=== PATIENT | female | born 1935 | race Caucasian/White ===

== ENCOUNTER → 2016-09-19 | Outpatient (CLI) | payer MEDICARE, OTHER ==
[~2016-09-19] MED LIST: ACET-66 PO; ASPI81TA2 PO; CARV25 PO; CLOP75 PO; CLOP75TA32 PO; DICL2100G TP; LOPE2 PO; LOSA50TA37 PO; MECL-111 PO; METHI5 PO; NITR0.4T SL; RABE20TA60 PO
== END | disposition home or self-care (01) ==
LOC: RADPV 13:29
PROVIDERS: ATTEND Internal Medicine Cardiovascular Disease
DX: I70.203 Unspecified atherosclerosis of native arteries of extremities, bilateral legs (principal)
CPT/HCPCS: 93925

== ENCOUNTER 2016-10-09 10:23 | Inpatient (IN) | payer MEDICARE, OTHER ==
[~2016-10-09] VITALS: Ht 160 cm; Wt 69.5 kg
[~2016-10-09 10:23] MED LIST changes: -CLOP75 PO; -DICL2100G TP
[2016-10-09] MEDS ORDERED: ASPIRIN 81 MG CHEWABLE TABLET PO ONE (10:30)
[2016-10-09] MEDS ORDERED: CLOP75 PO (10:38)
[2016-10-09] MEDS ORDERED: DICL2100G TP (10:38)
[2016-10-09 11:02] LABS: BASOPHILS % (AUTO) 0.2 % (0.0-2.0); EOSINOPHILS % (AUTO) 0.2 % (1.0-6.0); HEMATOCRIT 36.3 % (36-46); HEMOGLOBIN 11.8 g/dL (12.0-16.0); LYMPHOCYTES # (AUTO) 2.2 K/uL (1.0-4.8); LYMPHOCYTES % (AUTO) 25.5 % (22.0-44.0); MEAN CORPUSCULAR HGB CONC 32.7 G/dL (31.0-37.0); MEAN CORPUSCULAR VOLUME 95 fL (80-100); MONOCYTES # (AUTO) 0.5 K/uL (0.1-1.0); MONOCYTES % (AUTO) 5.8 % (2.0-9.0); NEUTROPHILS % (AUTO) 68.3 % (40.0-70.0); PLATELET COUNT (AUTO) 253 K/uL (150-450); RED BLOOD CELL COUNT(AUTO) 3.82 MIL/uL (4.00-5.20); RED CELL DISTRIBUTION WIDTH 13.9 % (11.5-14.5); WHITE BLOOD COUNT (AUTO) 8.8 K/uL (4.5-11.0)
[2016-10-09 11:12] LABS: ANION GAP 10 mmol/L (8-16); CARBON DIOXIDE 23 mmol/L (22-29); CHLORIDE 102 mmol/L (98-107); CREATININE 1.01 mg/dL (0.60-1.30); GLOMERULAR FILTR. RATE CALC 52 mL/min (>60); POTASSIUM 4.5 mmol/L (3.5-5.1); PROTHROMBIN TIME 10.3 SEC (9.4-11.6); SODIUM SERUM 135 mmol/L (136-145); UREA NITROGEN, BLOOD 22 mg/dL (7-18)
[2016-10-09 11:20] LABS: ALANINE AMINOTRANSFERASE 18 U/L (12-78); ASPARTATE AMINOTRANSFERASE 19 U/L (15-37); BILIRUBIN,TOTAL 0.3 mg/dL (0.1-1.0); CREATINE KINASE, TOTAL 70 U/L (26-192); TOTAL PROTEIN, SERUM 7.5 g/dL (6.4-8.2)
[2016-10-09 11:22] LABS: APPEARANCE,URINE CLEAR (CLEAR); GLUCOSE, URINE (UA) NEGATIVE (NEGATIVE); KETONES,URINE NEGATIVE (NEGATIVE); LEUKOCYTE ESTERASE ,URINE SMALL (NEGATIVE); OCCULT BLOOD,URINE NEGATIVE (NEGATIVE); PH,URINE 5.5 (5.0-8.0); PROTEIN,URINE NEGATIVE (NEGATIVE)
[2016-10-09 11:25] LABS: B-TYPE NATRIURETIC PEPTIDE 113 pg/mL (0-100)
[2016-10-09 11:26] LABS: ADD UA MICROSCOPIC YES
[2016-10-09] MEDS ORDERED: NITROGLYCERIN 2% (1 GM=INCH) PACKET TP ONE (11:30)
[2016-10-09 11:33] LABS: RBC,URINE 0-2 /HPF (0-2); SQUAMOUS EPITHELIAL CELL,UR Few /LPF (None Seen)
[2016-10-09] MEDS ORDERED: ONDANSETRON HCL 4 MG/2 ML VIAL IVP PRN ×2 (13:45→22:45)
[2016-10-09] MEDS ORDERED: MORPHINE SULFATE 2 MG/ML SYRINGE IVP PRN (13:45)
[2016-10-09] MEDS ORDERED: ACETAMINOPHEN 325 MG TABLET PO PRN ×2 (13:45→22:45)
[2016-10-09 17:33] VITALS: BP 181/80
[2016-10-09] MEDS ORDERED: CARVEDILOL 25 MG TABLET PO ONE (17:45)
[2016-10-09 19:37] VITALS: BP 139/67
[2016-10-09] MEDS ORDERED: IPRATROPIUM BROMIDE 0.5 MG/2.5 ML NEB SOLUTION NEB PRN (22:45)
[2016-10-09] MEDS ORDERED: MAGNESIUM HYDROXIDE SUSPENSION 30 ML UDCUP PO PRN (22:45)
[2016-10-09] MEDS ORDERED: NITROGLYCERIN 0.4 MG SUBLINGUAL TABLET #25 SL PRN (22:45)
[2016-10-09] MEDS ORDERED: ZOLPIDEM TARTRATE 10 MG TABLET PO PRN (22:45)
[2016-10-09] MEDS ORDERED: LOPERAMIDE HCL 2 MG CAPSULE PO PRN (22:45)
[2016-10-09 23:46] VITALS: BP 118/52
[2016-10-09] MEDS: NITROGLYCERIN 2% (1 GM=INCH) PACKET TP SCH (23:49)
[2016-10-10 04:10] VITALS: BP 133/55
[2016-10-10] MEDS: NITROGLYCERIN 2% (1 GM=INCH) PACKET TP SCH ×2 (05:46→12:00)
[2016-10-10 05:57] LABS: BASOPHILS % (AUTO) 0.2 % (0.0-2.0); EOSINOPHILS % (AUTO) 0.1 % (1.0-6.0); HEMATOCRIT 35.3 % (36-46); HEMOGLOBIN 11.6 g/dL (12.0-16.0); LYMPHOCYTES # (AUTO) 2.6 K/uL (1.0-4.8); MEAN CORPUSCULAR HEMOGLOBIN 31.2 pg (26.0-34.0); MEAN CORPUSCULAR HGB CONC 32.7 G/dL (31.0-37.0); MEAN CORPUSCULAR VOLUME 95 fL (80-100); MONOCYTES # (AUTO) 0.5 K/uL (0.1-1.0); MONOCYTES % (AUTO) 5.8 % (2.0-9.0); NEUTROPHILS # (AUTO) 5.2 K/uL (1.8-7.7); NEUTROPHILS % (AUTO) 62.9 % (40.0-70.0); PLATELET COUNT (AUTO) 234 K/uL (150-450); RED BLOOD CELL COUNT(AUTO) 3.71 MIL/uL (4.00-5.20); RED CELL DISTRIBUTION WIDTH 13.9 % (11.5-14.5); WHITE BLOOD COUNT (AUTO) 8.3 K/uL (4.5-11.0)
[2016-10-10 06:23] LABS: ALBUMIN 3.5 g/dL (3.4-5.0); BILIRUBIN,TOTAL 0.4 mg/dL (0.1-1.0); CALCIUM, TOTAL 8.7 mg/dL (8.8-10.5); CHOL/HDL RATIO 4.3 (3.9-5.7); CREATININE 1.04 mg/dL (0.60-1.30); THYROID STIMULATING HORMONE 6.77 uIU/mL (0.36-3.74); TOTAL PROTEIN, SERUM 6.8 g/dL (6.4-8.2)
[2016-10-10 07:10] VITALS: BP 143/69
[2016-10-10] MEDS: DICLOFENAC SODIUM 1% 100 GM GEL [2GM] TP SCH ×3 (08:05→16:25)
[2016-10-10] MEDS ORDERED: CARVEDILOL 25 MG TABLET PO SCH (09:00)
[2016-10-10] MEDS ORDERED: LOSARTAN POTASSIUM 50 MG TABLET PO SCH (09:00)
[2016-10-10] MEDS ORDERED: CLOPIDOGREL BISULFATE 75 MG TABLET PO SCH (09:00)
[2016-10-10] MEDS ORDERED: DOCUSATE SODIUM 100 MG CAPSULE PO SCH (09:00)
[2016-10-10] MEDS ORDERED: PANTOPRAZOLE SODIUM 40 MG/VIAL IVP SCH (09:00)
[2016-10-10] MEDS ORDERED: ASPIRIN 81 MG CHEWABLE TABLET PO SCH (09:00)
[2016-10-10 11:09] VITALS: BP 106/66
[2016-10-10 15:16] VITALS: BP 144/59
== END 2016-10-10 16:30 | disposition home or self-care (01) | DRG 303 ==
LOC: EMS 10:29 → 5S 13:26
PROVIDERS: ADMIT Hospitalist; ATTEND Hospitalist
DX: I25.110 Atherosclerotic heart disease of native coronary artery with unstable angina pectoris (principal); I44.7 Left bundle-branch block, unspecified; I73.9 Peripheral vascular disease, unspecified; I10 Essential (primary) hypertension; K21.9 Gastro-esophageal reflux disease without esophagitis; M81.0 Age-related osteoporosis without current pathological fracture; E03.9 Hypothyroidism, unspecified; E78.5 Hyperlipidemia, unspecified; Z88.0 Allergy status to penicillin; Z88.8 Allergy status to other drugs, medicaments and biological substances; Z88.6 Allergy status to analgesic agent; Z88.4 Allergy status to anesthetic agent; Z91.041 Radiographic dye allergy status; Z90.710 Acquired absence of both cervix and uterus; Z90.721 Acquired absence of ovaries, unilateral; Z82.49 Family history of ischemic heart disease and other diseases of the circulatory system; Z95.818 Presence of other cardiac implants and grafts; Z79.82 Long term (current) use of aspirin; Z88.7 Allergy status to serum and vaccine
CPT/HCPCS: 84439; 84443; 93005; 93306; 99285; C9113

== ENCOUNTER → 2016-10-15 | Outpatient (CLI) | payer MEDICARE, OTHER ==
[~2016-10-15] MED LIST changes: +CLOP75 PO; -CLOP75TA32 PO; +DICL2100G TP; -MECL-111 PO; -METHI5 PO
== END | disposition home or self-care (01) ==
LOC: RADPV 14:57
PROVIDERS: ATTEND Family Medicine
DX: M53.3 Sacrococcygeal disorders, not elsewhere classified (principal); M81.0 Age-related osteoporosis without current pathological fracture; M47.896 Other spondylosis, lumbar region; M41.86 Other forms of scoliosis, lumbar region; I70.0 Atherosclerosis of aorta; I70.8 Atherosclerosis of other arteries; Z91.81 History of falling
CPT/HCPCS: 72220

== ENCOUNTER 2017-11-15 11:58 | Emergency (ER) | payer MEDICARE, OTHER ==
[~2017-11-15] VITALS: Ht 157.5 cm; Wt 59.1 kg
[~2017-11-15 11:58] MED LIST changes: -ASPI81TA2 PO; +ASPI81TA39 PO
[2017-11-15] MEDS ORDERED: MECLIZINE HCL 25 MG TABLET PO ONE (12:30)
[2017-11-15] MEDS ORDERED: SODIUM CHLORIDE 0.9% 1,000 ML IV ONE (12:30)
[2017-11-15 12:43] LABS: BASOPHILS % (AUTO) 0.2 % (0.0-2.0); EOSINOPHILS % (AUTO) 0 % (1.0-6.0); HEMOGLOBIN 13.4 g/dL (12.0-16.0); LYMPHOCYTES # (AUTO) 1.8 K/uL (1.0-4.8); LYMPHOCYTES % (AUTO) 21.8 % (22.0-44.0); MEAN CORPUSCULAR HEMOGLOBIN 29.6 pg (26.0-34.0); MEAN CORPUSCULAR HGB CONC 33.4 G/dL (31.0-37.0); MEAN CORPUSCULAR VOLUME 89 fL (80-100); MONOCYTES # (AUTO) 0.4 K/uL (0.1-1.0); MONOCYTES % (AUTO) 5.3 % (2.0-9.0); NEUTROPHILS # (AUTO) 6.1 K/uL (1.8-7.7); NEUTROPHILS % (AUTO) 72.7 % (40.0-70.0); PLATELET COUNT (AUTO) 217 K/uL (150-450); RED BLOOD CELL COUNT(AUTO) 4.51 MIL/uL (4.00-5.20); RED CELL DISTRIBUTION WIDTH 17.1 % (11.5-14.5)
[2017-11-15 12:46] LABS: ANION GAP 9 mmol/L (8-16); CARBON DIOXIDE 25 mmol/L (22-29); CHLORIDE 104 mmol/L (98-107); CREATININE 1.04 mg/dL (0.60-1.30); GLOMERULAR FILTR. RATE CALC 50 mL/min (>60); GLUCOSE,RANDOM 111 mg/dL (70-110); POTASSIUM 4.4 mmol/L (3.5-5.1); SODIUM SERUM 138 mmol/L (136-145); UREA NITROGEN, BLOOD 23 mg/dL (7-18)
[2017-11-15 12:51] LABS: INR 1.1 (0.9-1.1); PROTHROMBIN TIME 11.3 SEC (9.4-11.6)
[2017-11-15 12:53] LABS: ALANINE AMINOTRANSFERASE 30 U/L (12-78); ALBUMIN 3.6 g/dL (3.4-5.0); ALKALINE PHOSPHATASE 90 U/L (46-116); ASPARTATE AMINOTRANSFERASE 23 U/L (15-37); BILIRUBIN,TOTAL 0.8 mg/dL (0.1-1.0); CREATINE KINASE, TOTAL 33 U/L (26-192)
[2017-11-15 13:01] LABS: B-TYPE NATRIURETIC PEPTIDE 719 pg/mL (0-100)
[2017-11-15] MEDS ORDERED: LISI-660 PO (13:16)
[2017-11-15] MEDS ORDERED: METO-558 PO (13:16)
[2017-11-15] MEDS ORDERED: ATOR40TA28 PO (13:16)
[2017-11-15] MEDS ORDERED: FAMO20 PO (13:16)
[2017-11-15] MEDS ORDERED: METHI5 PO (13:16)
[2017-11-15] MEDS ORDERED: LEVE500T53 PO (13:16)
[2017-11-15] MEDS ORDERED: APIX5TAB PO (13:16)
[2017-11-15 14:24] VITALS: BP 129/59
== END 2017-11-15 14:31 | disposition home or self-care (01) ==
LOC: EMS 11:59
DX: R42 Dizziness and giddiness (principal); I25.10 Atherosclerotic heart disease of native coronary artery without angina pectoris; I10 Essential (primary) hypertension; Z86.73 Personal history of transient ischemic attack (TIA), and cerebral infarction without residual deficits; Z90.721 Acquired absence of ovaries, unilateral; Z88.5 Allergy status to narcotic agent; Z88.0 Allergy status to penicillin; Z88.8 Allergy status to other drugs, medicaments and biological substances; Z91.041 Radiographic dye allergy status
CPT/HCPCS: 36415; 70450; 71045; 80053; 82550; 83880; 84484; 85025; 85610; 85730; 93005; 96360; 99285; J7030

== ENCOUNTER 2017-12-16 13:14 | Inpatient (IN) | payer MEDICARE, OTHER ==
[~2017-12-16] VITALS: Ht 154.9 cm; Wt 63.1 kg
[~2017-12-16 13:14] MED LIST changes: -ACET-66 PO; +APIX5TAB PO; -ASPI81TA39 PO; +ATOR40TA28 PO; -CARV25 PO; -CLOP75 PO; -DICL2100G TP; +FAMO20 PO; +LEVE500T53 PO; +LISI-660 PO; -LOPE2 PO; -LOSA50TA37 PO; +METHI5 PO; +METO-558 PO; -NITR0.4T SL; -RABE20TA60 PO
[2017-12-16] MEDS ORDERED: NITROGLYCERIN 2% (1 GM=INCH) PACKET TP ONE (13:45)
[2017-12-16] MEDS ORDERED: ASPIRIN 81 MG CHEWABLE TABLET PO ONE (13:45)
[2017-12-16 13:59] LABS: BASOPHILS % (AUTO) 0.3 % (0.0-2.0); EOSINOPHILS % (AUTO) 0 % (1.0-6.0); HEMATOCRIT 38.7 % (36-46); HEMOGLOBIN 12.9 g/dL (12.0-16.0); LYMPHOCYTES # (AUTO) 2.3 K/uL (1.0-4.8); LYMPHOCYTES % (AUTO) 24.4 % (22.0-44.0); MEAN CORPUSCULAR HEMOGLOBIN 30.4 pg (26.0-34.0); MEAN CORPUSCULAR HGB CONC 33.5 G/dL (31.0-37.0); MEAN CORPUSCULAR VOLUME 91 fL (80-100); MONOCYTES # (AUTO) 0.5 K/uL (0.1-1.0); MONOCYTES % (AUTO) 5.6 % (2.0-9.0); NEUTROPHILS # (AUTO) 6.6 K/uL (1.8-7.7); NEUTROPHILS % (AUTO) 69.7 % (40.0-70.0); PLATELET COUNT (AUTO) 207 K/uL (150-450); RED BLOOD CELL COUNT(AUTO) 4.26 MIL/uL (4.00-5.20); RED CELL DISTRIBUTION WIDTH 18.5 % (11.5-14.5)
[2017-12-16 14:12] LABS: CALCIUM, TOTAL 8.9 mg/dL (8.8-10.5); CREATININE 1.09 mg/dL (0.60-1.30); POTASSIUM 4.1 mmol/L (3.5-5.1)
[2017-12-16 14:17] LABS: ALBUMIN 3.5 g/dL (3.4-5.0); BILIRUBIN,TOTAL 1.1 mg/dL (0.1-1.0); TOTAL PROTEIN, SERUM 7.1 g/dL (6.4-8.2)
[2017-12-16] MEDS ORDERED: FUROSEMIDE 40 MG/4 ML VIAL IVP ONE (14:30)
[2017-12-16] MEDS ORDERED: ALBUTEROL SULFATE 2.5 MG/0.5 ML NEB SOLUTION NEB PRN (14:45)
[2017-12-16] MEDS ORDERED: ACETAMINOPHEN 325 MG TABLET PO PRN (14:45)
[2017-12-16] MEDS ORDERED: MAGNESIUM HYDROXIDE SUSPENSION 30 ML UDCUP PO PRN (14:45)
[2017-12-16 16:41] LABS: THYROID STIMULATING HORMONE 31.71 uIU/mL (0.36-3.74)
[2017-12-16 17:01] VITALS: BP 144/82
[2017-12-16 19:49] VITALS: BP 130/79
[2017-12-16] MEDS: APIXABAN 5 MG TABLET PO SCH ×2 (21:00→21:48)
[2017-12-16] MEDS: ATORVASTATIN CALCIUM 40 MG TABLET PO SCH (21:48)
[2017-12-16] MEDS: DOCUSATE SODIUM 100 MG CAPSULE PO SCH (21:48)
[2017-12-16] MEDS: LevETIRAcetam 500 MG TABLET PO SCH (21:48)
[2017-12-17 00:07] VITALS: BP 110/59
[2017-12-17 04:47] VITALS: BP 111/73
[2017-12-17 06:30] LABS: BASOPHILS % (AUTO) 0.2 % (0.0-2.0); EOSINOPHILS % (AUTO) 0 % (1.0-6.0); HEMATOCRIT 35.5 % (36-46); HEMOGLOBIN 12.2 g/dL (12.0-16.0); LYMPHOCYTES # (AUTO) 2.2 K/uL (1.0-4.8); LYMPHOCYTES % (AUTO) 21.9 % (22.0-44.0); MEAN CORPUSCULAR HGB CONC 34.4 G/dL (31.0-37.0); MEAN CORPUSCULAR VOLUME 90 fL (80-100); MONOCYTES # (AUTO) 0.5 K/uL (0.1-1.0); MONOCYTES % (AUTO) 5.5 % (2.0-9.0); NEUTROPHILS # (AUTO) 7.2 K/uL (1.8-7.7); NEUTROPHILS % (AUTO) 72.4 % (40.0-70.0); PLATELET COUNT (AUTO) 195 K/uL (150-450); RED BLOOD CELL COUNT(AUTO) 3.95 MIL/uL (4.00-5.20); RED CELL DISTRIBUTION WIDTH 18.4 % (11.5-14.5)
[2017-12-17 06:39] LABS: CALCIUM, TOTAL 8.9 mg/dL (8.8-10.5); CREATININE 1.22 mg/dL (0.60-1.30); POTASSIUM 3.8 mmol/L (3.5-5.1)
[2017-12-17 07:08] VITALS: BP 139/80
[2017-12-17] MEDS: APIXABAN 5 MG TABLET PO SCH ×2 (08:12→21:00)
[2017-12-17] MEDS: DOCUSATE SODIUM 100 MG CAPSULE PO SCH ×2 (08:12→21:00)
[2017-12-17] MEDS: FUROSEMIDE 20 MG/2 ML VIAL IVP SCH (08:13)
[2017-12-17] MEDS: METOPROLOL SUCCINATE 50 MG ER TABLET PO SCH (08:13)
[2017-12-17] MEDS: PANTOPRAZOLE SODIUM 40 MG DR TABLET PO SCH (08:13)
[2017-12-17] MEDS: LevETIRAcetam 500 MG TABLET PO SCH ×2 (08:14→21:55)
[2017-12-17] MEDS ORDERED: METHIMAZOLE 5 MG TABLET PO SCH (09:00)
[2017-12-17 11:35] VITALS: BP 109/62
[2017-12-17 15:24] VITALS: BP 113/73
[2017-12-17 16:53] LABS: FREE T4 (FREE THYROXINE) 0.38 ng/dL (0.76-1.46)
[2017-12-17 20:02] VITALS: BP 117/60
[2017-12-17] MEDS: ATORVASTATIN CALCIUM 40 MG TABLET PO SCH (21:55)
[2017-12-18 00:05] VITALS: BP 107/60
[2017-12-18 05:31] VITALS: BP 112/58
[2017-12-18] MEDS ORDERED: LEVOTHYROXINE SODIUM 50 MCG TABLET PO SCH (06:30)
[2017-12-18 07:22] VITALS: BP 121/68
[2017-12-18] MEDS: DOCUSATE SODIUM 100 MG CAPSULE PO SCH (09:00)
[2017-12-18] MEDS: APIXABAN 5 MG TABLET PO SCH (09:00)
[2017-12-18] MEDS: FUROSEMIDE 20 MG/2 ML VIAL IVP SCH (09:21)
[2017-12-18] MEDS: PANTOPRAZOLE SODIUM 40 MG DR TABLET PO SCH (09:21)
[2017-12-18] MEDS: LevETIRAcetam 500 MG TABLET PO SCH (09:25)
[2017-12-18] MEDS: METOPROLOL SUCCINATE 50 MG ER TABLET PO SCH (09:25)
[2017-12-18 11:34] VITALS: BP 135/70
[2017-12-18] MEDS ORDERED: FURO20 PO (11:37)
[2017-12-18] MEDS ORDERED: LEVO50 PO (11:38)
[2017-12-18 15:57] VITALS: BP 115/67
== END 2017-12-18 18:25 | disposition home or self-care (01) | DRG 292 ==
LOC: EMS 13:15 → 5S 15:31
PROVIDERS: ADMIT Internal Medicine; ATTEND Internal Medicine
DX: I11.0 Hypertensive heart disease with heart failure (principal); I48.92 Unspecified atrial flutter; I50.21 Acute systolic (congestive) heart failure; I48.2 Chronic atrial fibrillation; E78.5 Hyperlipidemia, unspecified; E03.9 Hypothyroidism, unspecified; I44.7 Left bundle-branch block, unspecified; E05.90 Thyrotoxicosis, unspecified without thyrotoxic crisis or storm; I25.10 Atherosclerotic heart disease of native coronary artery without angina pectoris; Z88.5 Allergy status to narcotic agent; Z88.0 Allergy status to penicillin; Z88.7 Allergy status to serum and vaccine; Z88.8 Allergy status to other drugs, medicaments and biological substances; Z88.1 Allergy status to other antibiotic agents; Z91.041 Radiographic dye allergy status; Z90.5 Acquired absence of kidney; Z90.710 Acquired absence of both cervix and uterus; Z86.73 Personal history of transient ischemic attack (TIA), and cerebral infarction without residual deficits; Z82.49 Family history of ischemic heart disease and other diseases of the circulatory system
CPT/HCPCS: 84439; 84443; 93005; 93306; 96374; 99285; J1940

== ENCOUNTER → 2018-12-23 | Outpatient (CLI) | payer MEDICARE, OTHER ==
[~2018-12-23] MED LIST changes: -LEVE500T53 PO; -LISI-660 PO; +MECL12.585 PO
== END | disposition home or self-care (01) ==
LOC: RADPV 08:54
PROVIDERS: ATTEND Internal Medicine Cardiovascular Disease
DX: I37.1 Nonrheumatic pulmonary valve insufficiency (principal); I31.3 Pericardial effusion (noninflammatory); R06.89 Other abnormalities of breathing
CPT/HCPCS: 93306; 93880

== ENCOUNTER → 2020-02-25 | Outpatient (CLI) | payer MEDICARE, OTHER ==
[~2020-02-25] MED LIST changes: +MECL-183 PO; -MECL12.585 PO; +METH-386 PO; -METHI5 PO
== END | disposition home or self-care (01) ==
LOC: RADPV 09:32
PROVIDERS: ATTEND Nurse Practitioner
DX: K80.20 Calculus of gallbladder without cholecystitis without obstruction (principal); K42.9 Umbilical hernia without obstruction or gangrene
CPT/HCPCS: 76700

== ENCOUNTER → 2020-03-08 | Outpatient (CLI) | payer MEDICARE, OTHER ==
[~2020-03-08] MED LIST changes: +IOVERSOL 350 MG/ML 100 ML VIAL ONE; +SODIUM CHLORIDE 0.9% 100 ML ONE
== END | disposition home or self-care (01) ==
LOC: RADMN 09:38
PROVIDERS: ATTEND Nurse Practitioner
DX: K43.6 Other and unspecified ventral hernia with obstruction, without gangrene (principal); N28.89 Other specified disorders of kidney and ureter; K57.30 Diverticulosis of large intestine without perforation or abscess without bleeding; I51.7 Cardiomegaly; I70.8 Atherosclerosis of other arteries
CPT/HCPCS: 74178; J7050; Q9967

== ENCOUNTER 2021-09-25 17:43 | Emergency (ER) | payer MEDICARE, OTHER ==
[~2021-09-25] VITALS: Ht 162.6 cm; Wt 70.5 kg
[~2021-09-25 17:43] MED LIST changes: -IOVERSOL 350 MG/ML 100 ML VIAL ONE; -MECL-183 PO; +MECL-226 PO; -SODIUM CHLORIDE 0.9% 100 ML ONE
[2021-09-25] MEDS ORDERED: TEMA7.5C17 PO (18:55)
[2021-09-25] MEDS ORDERED: PANT-31 PO (18:55)
[2021-09-25] MEDS ORDERED: MORP1AMP6 PO (18:55)
[2021-09-25] MEDS ORDERED: LORA-999 PO (18:55)
[2021-09-25 19:24] LABS: BASOPHILS % (AUTO) 0.1 % (0.0-2.0); EOSINOPHILS % (AUTO) 0 % (1.0-6.0); HEMOGLOBIN 9.8 g/dL (12.0-16.0); LYMPHOCYTES # (AUTO) 1.7 K/uL (1.0-4.8); LYMPHOCYTES % (AUTO) 12.1 % (22.0-44.0); MEAN CORPUSCULAR HEMOGLOBIN 32.9 pg (26.0-34.0); MEAN CORPUSCULAR HGB CONC 33.8 G/dL (31.0-37.0); MEAN CORPUSCULAR VOLUME 97 fL (80-100); MONOCYTES # (AUTO) 0.8 K/uL (0.1-1.0); MONOCYTES % (AUTO) 5.4 % (2.0-9.0); NEUTROPHILS # (AUTO) 11.7 K/uL (1.8-7.7); NEUTROPHILS % (AUTO) 82.4 % (40.0-70.0); PLATELET COUNT (AUTO) 255 K/uL (150-450); RED BLOOD CELL COUNT(AUTO) 2.98 MIL/uL (4.00-5.20); RED CELL DISTRIBUTION WIDTH 14.4 % (11.5-14.5)
[2021-09-25 19:34] LABS: CALCIUM, TOTAL 8.7 mg/dL (8.8-10.5); CREATININE 1.24 mg/dL (0.60-1.30)
[2021-09-25 19:40] LABS: ALBUMIN 2.9 g/dL (3.4-5.0); BILIRUBIN,TOTAL 0.5 mg/dL (0.1-1.0); TOTAL PROTEIN, SERUM 6.6 g/dL (6.4-8.2)
[2021-09-25 20:04] VITALS: BP 105/70
== END 2021-09-25 21:00 | disposition home or self-care (01) ==
LOC: EMS 17:43
DX: R04.0 Epistaxis (principal); I48.91 Unspecified atrial fibrillation; I25.10 Atherosclerotic heart disease of native coronary artery without angina pectoris; I10 Essential (primary) hypertension; M81.0 Age-related osteoporosis without current pathological fracture; Z86.79 Personal history of other diseases of the circulatory system; Z86.73 Personal history of transient ischemic attack (TIA), and cerebral infarction without residual deficits; Z87.19 Personal history of other diseases of the digestive system; Z85.9 Personal history of malignant neoplasm, unspecified; Z95.1 Presence of aortocoronary bypass graft; Z90.5 Acquired absence of kidney; Z98.890 Other specified postprocedural states; Z88.0 Allergy status to penicillin; Z91.041 Radiographic dye allergy status; Z88.5 Allergy status to narcotic agent; Z88.8 Allergy status to other drugs, medicaments and biological substances; Z96.89 Presence of other specified functional implants
CPT/HCPCS: 80053; 85025; 99283